=== PATIENT | female | born 1990 | race Caucasian/White ===

== ENCOUNTER 2021-05-04 01:43 | Emergency (ER) | payer OTHER ==
[~2021-05-04] VITALS: Ht 157.5 cm; Wt 89.8 kg
[2021-05-04] MEDS ORDERED: ACETAMINOPHEN-1 EAC2 PO (03:22)
[2021-05-04] MEDS ORDERED: ZOFRAN ODT4 MG PO (03:22)
[2021-05-04] MEDS ORDERED: GENTAK5 ML TOP (03:22)
[2021-05-04 03:33] VITALS: BP 122/64
== END 2021-05-04 03:33 | disposition home or self-care (01) ==
LOC: M.ERS 01:43
DX: H16.9 Unspecified keratitis (principal); R11.0 Nausea; R51.9 Headache, unspecified